=== PATIENT | male | born 1965 | race Caucasian/White ===

== ENCOUNTER 2016-08-03 22:57 | Inpatient (IN) | payer OTHER ==
[2016-08-03 23:00] VITALS: O2SAT 97
[2016-08-03] MEDS ORDERED: ONDANSETRON HCL 4 MG/2 ML VIAL ONE (23:03)
[2016-08-03] MEDS ORDERED: MORPHINE SULFATE 8 MG/ML INJ ONE (23:03)
[2016-08-03 23:17] LABS: I-STAT POTASSIUM 3.5 MMOL/L (3.5-4.9)
[2016-08-03 23:18] LABS: AUTOMATED NEUTROPHIL # 9.7 TH/MM3 (1.8-7.7); BASOPHIL % 0.2 % (0.0-2.0); EOSINOPHIL % 0.2 % (0.0-4.0); HEMATOCRIT 38.2 % (39.0-51.0); HEMO FLAGS DIFF FINAL; LYMPH % 25.6 % (9.0-44.0); LYMPHOCYTE # 3.6 TH/MM3 (1.0-4.8); MEAN CELL VOLUME 86.5 FL (80.0-100.0); MEAN CORPUSCULAR HEMOGLOBIN 29.2 PG (27.0-34.0); MEAN CORPUSCULAR HGB CONC 33.8 % (32.0-36.0); MONO % 5.3 % (0.0-8.0); NEUT % 68.7 % (16.0-70.0); PLATELET COUNT 276 TH/MM3 (150-450); RED BLOOD COUNT 4.42 MIL/MM3 (4.50-5.90); RED CELL DISTRIBUTION WIDTH 13.3 % (11.6-17.2); WHITE BLOOD COUNT 14.1 TH/MM3 (4.0-11.0)
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
[2016-08-03] MEDS ORDERED: DIPHTH/TETANUS/ACEL PERTUSSIS (BOOSTER) 0.5 ML VIAL/PFS IM ONE (23:24)
[2016-08-03] MEDS ORDERED: ceFAZolin 2 GM PREMIX 50 ML IV STA (23:24)
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
[2016-08-03] MEDS ORDERED: IOHEXOL 350 MG/ML 10 ML VIAL (for RAD DIAG) IV ONE (23:28)
[2016-08-03] MEDS ORDERED: ceFAZolin 2 GM PREMIX 50 ML ONE (23:29)
[2016-08-03] MEDS ORDERED: LIDOCAINE 1%/EPINEPHrine 1:100,000 SOLN 30 ML VIAL ONE (23:29)
[2016-08-03] MEDS ORDERED: SODIUM CHLOR 0.9% 1000 ML INJ 1,000 ML IV SCH (23:30)
[2016-08-03 23:31] LABS: APTT (PATIENT) 23.3 SEC (24.3-30.1); PROTHROMBIN TIME - PATIENT 11.6 SEC (9.8-11.6)
[2016-08-03] MEDS ORDERED: MIDAZOLAM HCL 5 MG/ML VIAL (1 ML) ONE (23:31)
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
[2016-08-03 23:58] VITALS: O2SAT 96
[2016-08-04] VITALS (17 sets, daily range): BP systolic 84–141; BP diastolic 52–77; PULSE 80–121; RESP 6–45; TEMP 98.4–100.4; O2SAT 88–100
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
--- NOTE | 2016-08-04 00:14 | RADRPT ---
EXAM DATE/TIME: 08/04/2016 00:07 [facility] COMPARISON: CHEST SINGLE AP, August 03, 2016, 22:51. INDICATIONS : Post right chest tube placement. MEDICAL HISTORY : None. SURGICAL HISTORY : None. ENCOUNTER: Initial ACUITY: 1 day PAIN SCORE: Non-responsive. LOCATION: Right chest FINDINGS: There is a right-sided chest tube in place. The previous seen right pneumothorax is no longer seen. T here is increased density in the right lung likely related to contusion. Multiple or fractures are se en bilaterally. CONCLUSION: Right chest tube in good position with resolution of the pneumothorax. Ruslan Mckeon MD on August 04, 2016 at 0:12 Board Certified Radiologist. This report was verified electronically.
[2016-08-04] MEDS ORDERED: HYDROmorphone HCL PF 1 MG/ML VIAL IV SCH (00:25)
[2016-08-04] MEDS ORDERED: ACETAMINOPHEN/HYDROcodone 325 MG/5 MG TAB PO PRN ×2 (00:30)
[2016-08-04] MEDS ORDERED: MISCELLANEOUS NURSING INFORMATION XX SCH (00:30)
[2016-08-04] MEDS ORDERED: HYDROmorphone HCL PF 1 MG/ML VIAL IVP PRN (00:30)
[2016-08-04] MEDS ORDERED: ENALAPRILAT 1.25 MG/ML VIAL IV PRN (00:30)
[2016-08-04] MEDS ORDERED: CHLORHEXIDINE GLUCONATE 2 % 1 PACK (2 CLOTHS) TOP PRN (00:30)
[2016-08-04] MEDS ORDERED: MAGNESIUM HYDROXIDE SUSP 30 ML CUP PO PRN ×2 (00:30→07:00)
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
[2016-08-04] MEDS ORDERED: SODIUM CHLOR 0.9% 1000 ML INJ 2,000 ML IV SCH (00:45)
[2016-08-04] MEDS ORDERED: PANTOPRAZOLE SODIUM 40 MG VIAL IVP SCH (01:00)
[2016-08-04] MEDS ORDERED: SODIUM CHLOR 0.9% 1000 ML INJ 1,000 ML IV SCH (01:30)
[2016-08-04] MEDS ORDERED: SODIUM CHLOR 0.9% 1000 ML INJ 1,000 ML IV ONE (02:00)
[2016-08-04] MEDS ORDERED: ACETAMINOPHEN 1000 MG/100 ML VIAL IV ONE (02:00)
[2016-08-04] MEDS: SODIUM CHLOR 0.9% 1000 ML INJ 1,000 ML IV SCH ×3 (02:04→22:09)
[2016-08-04] MEDS ORDERED: HYDROCORTISONE SOD SUCCINATE 100 MG VIAL IV PUSH ONE (02:15)
[2016-08-04] MEDS ORDERED: ALBUMIN HUMAN 5% 25 GM/500 ML BOTTLE IV ONE (02:15)
[2016-08-04 02:46] LABS: HEMATOCRIT 23.8 % (39.0-51.0); REVIEW FLAG FINAL
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
[2016-08-04] MEDS ORDERED: NOREPINEPHRINE-DEXTROSE DRIP 250 ML IV ONE (03:16)
[2016-08-04] MEDS: CHLORHEXIDINE GLUCONATE 2 % 1 PACK (2 CLOTHS) TOP SCH (04:00)
[2016-08-04 04:29] LABS: BLOOD GAS BASE EXCESS -5.7 mmol/L (-2-2); BLOOD GAS CARBOXYHEMOGLOBIN 1.1 % (0-4); BLOOD GAS HCO3 21 mmol/L (22-26); BLOOD GAS O2 HGB SATURATION 91 % (90-100); BLOOD GAS OXYGEN CONTENT 11.3 Vol % (12.0-20.0); BLOOD GAS PCO2 51 mmHg (38-42); BLOOD GAS PO2 72 mmHg (61-120); BLOOD GAS TOTAL HGB 8.8 G/DL (12.0-16.0); TEMP CORR TO 98.6
[2016-08-04 04:30] LABS: CRITICAL VALUE YES; DRAW SITE ALINE; FIO2 100 %; LITER FLOW 15 L/M; OXYGEN DEVICE NRB; STAT YES
[2016-08-04 04:34] LABS: P2Y12 REACTION UNITS (PRU) 330 PRU (194-418)
[2016-08-04] MEDS ORDERED: LIDOCAINE HCL 2% 100 MG/5 ML SYRINGE ONE (04:35)
[2016-08-04] MEDS ORDERED: EPINEPHrine HCL (1:10,000) 1 MG/10 ML SYRINGE ONE (04:35)
[2016-08-04] MEDS ORDERED: ATROPINE SULFATE 1 MG/10 ML SYRINGE ONE (04:35)
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
[2016-08-04] MEDS ORDERED: HEPARIN SODIUM - SQ 10,000 UNITS/ML VIAL ONE (04:45)
[2016-08-04] MEDS ORDERED: AMINOCAPROIC ACID INJ 250 MG/ML 20 ML VIAL IV ONE (05:00)
[2016-08-04] MEDS ORDERED: DEXMEDETOMIDINE INJ 50 ML IV ONE (05:00)
[2016-08-04] MEDS ORDERED: NITROGLYCERIN-DEXTROSE INJ 250 ML IV ONE (05:00)
[2016-08-04] MEDS ORDERED: NOREPINEPHRINE 4 MG/4 ML AMP IV ONE (05:00)
[2016-08-04] MEDS ORDERED: EPINEPHrine HCL (1:1000) 30 MG/30 ML VIAL IV ONE (05:00)
[2016-08-04] MEDS ORDERED: VECURONIUM BROMIDE 10 MG VIAL IV ONE (05:00)
[2016-08-04] MEDS ORDERED: ceFAZolin INJ 1,000 MG VIAL IV ONE ×3 (05:00→06:00)
[2016-08-04] MEDS ORDERED: CALCIUM CHLORIDE 10% SOLN 1 GRAM/10 ML SYR IV ONE (05:00)
--- NOTE | 2016-08-04 05:03 | PD.PROCEDR ---
Procedure Note Procedure A time-out was completed verifying correct patient, procedure, site, positioning , and special equipment if applicable. The patient was placed in a dependent position appropriate for central line placement based on the vein to be cannulated. The patients right neck was prepped and draped in sterile fashion. 1% Lidocaine was used to anesthetize the surrounding skin area. A triple lumen 9 -Kosovan Cordis catheter was introduced into the the internal jugular vein using the Seldinger technique and under ultrasound guidance. The catheter was threaded smoothly over the guide wire and appropriate blood return was obtained. Each lumen of the catheter was evacuated of air and flushed with sterile saline. The catheter was then sutured in place to the skin and a sterile dressing applied. Perfusion to the extremity distal to the point of catheter insertion was checked and found to be adequate. Estimated Blood Loss: 1ml The patient tolerated the procedure well and there were no complications. Lauri Johnson MD Aug 04, 2016 05:03
--- NOTE | 2016-08-04 05:03 | PD.PROCEDR ---
Procedure Note Procedure Arterial line A time-out was completed verifying correct patient, procedure, site, positioning , and special equipment if applicable. Allens test was performed to ensure adequate perfusion. The patients right wrist was prepped and draped in sterile fashion. 1% Lidocaine was used to anesthetize the area. A 18G Arrow arterial line was introduced into the radial artery. The catheter was threaded over the guide wire and the needle was removed with appropriate pulsatile blood return. The catheter was then sutured in place to the skin and a sterile dressing applied. Perfusion to the extremity distal to the point of catheter insertion was checked and found to be adequate. Estimated Blood Loss: 1ml The patient tolerated the procedure well and there were no complications. Lauri Johnson MD Aug 04, 2016 05:03
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
[2016-08-04] MEDS ORDERED: BUPIVACAINE LIPOSOME PF 1.3% 20 ML VIAL INFIL ONE (05:30)
[2016-08-04] MEDS ORDERED: BUPIVACAINE LIPOSO PF 1.3% INJ 20 ML, DEXAMETHASONE INJ 4 MG in SODIUM CHLORIDE 0.9% IN... SCH (05:45)
[2016-08-04] MEDS ORDERED: ONDANSETRON HCL 4 MG/2 ML VIAL IV PUSH PRN (07:00)
[2016-08-04] MEDS ORDERED: NALOXONE HCL 0.4 MG/ML AMP IV PRN (07:00)
[2016-08-04] MEDS ORDERED: ACETAMINOPHEN 325 MG TAB PO PRN (07:00)
[2016-08-04] MEDS ORDERED: Post-op Orders (for Pharmacy) MISC OTHER ONE (07:00)
[2016-08-04] MEDS ORDERED: RESP: ALBUTEROL 2.5 MG/3 ML NEB (PRN) NEB (07:00)
[2016-08-04 07:13] LABS: AUTOMATED NEUTROPHIL # 7.4 TH/MM3 (1.8-7.7); BASOPHIL % 0.1 % (0.0-2.0); EOSINOPHIL % 0.1 % (0.0-4.0); HEMATOCRIT 22.4 % (39.0-51.0); HEMO FLAGS DIFF FINAL; LYMPH % 3.2 % (9.0-44.0); LYMPHOCYTE # 0.3 TH/MM3 (1.0-4.8); MEAN CELL VOLUME 85.1 FL (80.0-100.0); MEAN CORPUSCULAR HEMOGLOBIN 29.3 PG (27.0-34.0); MEAN CORPUSCULAR HGB CONC 34.5 % (32.0-36.0); NEUT % 89.6 % (16.0-70.0); PLATELET COUNT 122 TH/MM3 (150-450); RED BLOOD COUNT 2.63 MIL/MM3 (4.50-5.90); RED CELL DISTRIBUTION WIDTH 13.9 % (11.6-17.2); REVIEW FLAG FINAL; WHITE BLOOD COUNT 8.2 TH/MM3 (4.0-11.0)
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
[2016-08-04 07:38] LABS: BICARBONATE 23.3 MEQ/L (21.0-32.0); INTERNATIONAL NORMALIZED RATIO 1.1 RATIO; POTASSIUM 4.1 MEQ/L (3.5-5.1); PROTHROMBIN TIME - PATIENT 12.2 SEC (9.8-11.6)
[2016-08-04] MEDS ORDERED: MIDAZOLAM HCL 2 MG/2 ML VIAL ONE (07:49)
[2016-08-04] MEDS ORDERED: fentaNYL CITRATE 250 MCG/5 ML AMP ONE (07:49)
[2016-08-04 07:52] LABS: CALCIUM-PROTEIN CORRECTED 8.9 MG/DL (8.5-10.1)
[2016-08-04] MEDS ORDERED: PROPOFOL 1000 MG/100 ML INJ 100 ML ONE (07:59)
[2016-08-04] MEDS ORDERED: MORPHINE SULFATE 30 MG/30 ML PCA IV SCH (08:30)
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
[2016-08-04] MEDS: BACITRACIN TOP OINT 15 GM TUBE TOP SCH ×2 (09:00→22:09)
[2016-08-04] MEDS ORDERED: DOCUSATE SODIUM 100 MG CAP PO SCH (09:00)
--- NOTE | 2016-08-04 09:05 | RADRPT ---
EXAM DATE/TIME: 08/04/2016 07:55 [facility] COMPARISON: CHEST SINGLE AP, August 04, 2016, 2:34. INDICATIONS : Status post Thoracotomy. MEDICAL HISTORY : None. SURGICAL HISTORY : None. ENCOUNTER: Subsequent ACUITY: 2 days PAIN SCORE: Non-responsive. LOCATION: Bilateral chest FINDINGS: There are into right chest tubes in place with clearing of the majority of opacity in the right lung is consistent with evacuation of effusion. Right hemidiaphragm is well defined. Consolidation is note d in the retrocardiac region on the left and multiple rib fractures are noted with no pneumothorax. CONCLUSION: 2 right chest tubes in place clearing of right hemothorax pleural effusion. No pneumothorax. Consolid ation retrocardiac region left lower lobe. ET tube is well above the daniel nasogastric tube in the s tomach. Amrit Castro MD on August 04, 2016 at 9:02 Board Certified Radiologist. This report was verified electronically.
[2016-08-04] MEDS ORDERED: MAGNESIUM OXIDE 400 MG TAB PO PRN (09:15)
[2016-08-04] MEDS ORDERED: POTASSIUM CL 40 MEQ/30 ML LIQ UDC PO/TUBE PRN ×2 (09:15)
[2016-08-04] MEDS ORDERED: MAGNESIUM SULFATE INJ 2 GM in SODIUM CHLORIDE 0.9% INJ 96 ML IV PRN (09:15)
[2016-08-04] MEDS ORDERED: POTASSIUM PHOSPHATE MONOBASIC 500 MG TAB PO PRN (09:15)
[2016-08-04] MEDS ORDERED: POTASSIUM PHOSPHATE INJ 30 MMOL in SODIUM CHLOR 0.9% 250 ML INJ 250 ML IV PRN (09:15)
[2016-08-04] MEDS ORDERED: POTASSIUM CHLOR 20 MEQ PREMIX 100 ML IV PRN ×2 (09:15)
[2016-08-04] MEDS ORDERED: POTASSIUM CHLOR 40 MEQ PREMIX 100 ML IV PRN ×2 (09:15)
[2016-08-04] MEDS ORDERED: POTASSIUM PHOSPHATE MONOBASIC 500 MG TAB PO/TUBE PRN (09:15)
[2016-08-04] MEDS ORDERED: MAGNESIUM SULFATE INJ 4 GM in SODIUM CHLORIDE 0.9% INJ 92 ML IV PRN (09:15)
[2016-08-04] MEDS ORDERED: SODIUM PHOSPHATE INJ 30 MMOL in SODIUM CHLOR 0.9% 250 ML INJ 240 ML IV PRN (09:15)
[2016-08-04] MEDS: RESP: ALBUTEROL 2.5 MG/3 ML NEB (SCH) NEB ×3 (09:59→20:55)
[2016-08-04] MEDS: PROPOFOL 1000 MG/100 ML INJ 100 ML IV SCH ×2 (11:01→11:02)
[2016-08-04] MEDS: fentaNYL DRIP 250 ML IV SCH ×2 (11:01→22:10)
[2016-08-04 11:17] LABS: REVIEW FLAG FINAL
[2016-08-04] MEDS: KETOROLAC TROMETHAMINE 30 MG/ML (IVP) VIAL IV PUSH SCH ×2 (11:34→18:00)
[2016-08-04] MEDS: ACETAMINOPHEN 1000 MG/100 ML VIAL IV SCH ×2 (11:34→18:00)
[2016-08-04 11:42] LABS: BLOOD GAS BASE EXCESS -1.6 mmol/L (-2-2); BLOOD GAS CARBOXYHEMOGLOBIN 2.2 % (0-4); BLOOD GAS HCO3 23 mmol/L (22-26); BLOOD GAS METHEMOGLOBIN 0.9 % (0-2); BLOOD GAS O2 HGB SATURATION 97 % (90-100); BLOOD GAS PCO2 44 mmHg (38-42); BLOOD GAS PO2 200 mmHg (61-120); BLOOD GAS TOTAL HGB 8.5 G/DL (12.0-16.0); CRITICAL VALUE NO; OXYGEN DEVICE VENTILATOR; TEMP CORR TO 98.6; VENT SETTINGS SEE COMMENTS
[2016-08-04 11:43] LABS: DRAW SITE ALINE; FIO2 50 %; STAT NO
[2016-08-04] MEDS ORDERED: LACTATED RINGER'S 1000 ML INJ 1,000 ML IV ONE (12:07)
[2016-08-04] MEDS ORDERED: PHENYLEPH/NS 1000 MCG/10 ML SYR IV ONE (12:07)
[2016-08-04] MEDS ORDERED: ETOMIDATE 20 MG/10 ML VIAL IV PUSH ONE (12:08)
[2016-08-04] MEDS ORDERED: PCA - TOTAL MG MORPHINE DELIVERED PER SHIFT SCH (14:00)
[2016-08-04] MEDS ORDERED: PROPOFOL 200 MG/20 ML AMP IV ONE (15:25)
[2016-08-04] MEDS ORDERED: DEXMEDETOMIDINE HCL 200 MCG/2 ML VIAL IV ONE (15:25)
[2016-08-04] MEDS ORDERED: NORMOSOL R INJ 4,000 ML IV ONE (15:25)
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
[2016-08-04] MEDS: CHLORHEXIDINE 0.12% (ORAL KIT) 15 ML CUP MT SCH (20:00)
--- NOTE | 2016-08-04 22:01 | EKG ---
Date Performed: 08/04/2016 Time Performed: 04:05:48 PTAGE: 89 years EKG: Sinus tachycardia. Low QRS voltages in limb leads Borderline ECG NO PREVIOUS TRACING DOCTOR: Helio Ventura Interpretating Date/Time 08/04/2016 21:59:06
[2016-08-04] MEDS: DOCUSATE CALCIUM 240 MG CAP PO SCH (22:09)
[2016-08-04] MEDS: PANTOPRAZOLE SOD 40 MG DELAYED RELEASE TAB PO SCH (22:09)
[2016-08-04] MEDS: oxyCODONE/ACETAMINOPHEN 5 MG/325 MG TAB PO PRN (22:19)
[2016-08-05] VITALS (16 sets, daily range): BP systolic 96–136; BP diastolic 52–80; PULSE 92–118; RESP 12–24; TEMP 97–100.8; O2SAT 92–98
[2016-08-05] MEDS: CHLORHEXIDINE GLUCONATE 2 % 1 PACK (2 CLOTHS) TOP SCH (04:00)
[2016-08-05 04:42] LABS: AUTOMATED NEUTROPHIL # 5.7 TH/MM3 (1.8-7.7); BASOPHIL % 0.2 % (0.0-2.0); EOSINOPHIL % 0.2 % (0.0-4.0); HEMATOCRIT 21.9 % (39.0-51.0); HEMO FLAGS DIFF FINAL; LYMPH % 18.5 % (9.0-44.0); LYMPHOCYTE # 1.5 TH/MM3 (1.0-4.8); MEAN CELL VOLUME 84.8 FL (80.0-100.0); MEAN CORPUSCULAR HEMOGLOBIN 29.3 PG (27.0-34.0); MEAN CORPUSCULAR HGB CONC 34.6 % (32.0-36.0); MONO % 9.3 % (0.0-8.0); NEUT % 71.8 % (16.0-70.0); PLATELET COUNT 117 TH/MM3 (150-450); RED BLOOD COUNT 2.59 MIL/MM3 (4.50-5.90); RED CELL DISTRIBUTION WIDTH 14.2 % (11.6-17.2); WHITE BLOOD COUNT 7.9 TH/MM3 (4.0-11.0)
[2016-08-05 05:19] LABS: BICARBONATE 27.3 MEQ/L (21.0-32.0); CALCIUM-PROTEIN CORRECTED 8.4 MG/DL (8.5-10.1); POTASSIUM 3.7 MEQ/L (3.5-5.1); TOTAL BILIRUBIN ADULT 0.8 MG/DL (0.2-1.0)
[2016-08-05] MEDS: ACETAMINOPHEN 1000 MG/100 ML VIAL IV SCH ×2 (06:00)
[2016-08-05] MEDS: KETOROLAC TROMETHAMINE 30 MG/ML (IVP) VIAL IV PUSH SCH ×2 (06:00)
[2016-08-05] MEDS: SODIUM CHLOR 0.9% 1000 ML INJ 1,000 ML IV SCH (06:20)
--- NOTE | 2016-08-05 06:36 | RADRPT ---
EXAM DATE/TIME: 08/05/2016 05:29 [place] COMPARISON: CHEST SINGLE AP, August 04, 2016, 7:55. INDICATIONS : Shortness of breath MEDICAL HISTORY : None. SURGICAL HISTORY : None. ENCOUNTER: Subsequent ACUITY: 3 days PAIN SCORE: Non-responsive. LOCATION: Bilateral chest FINDINGS: 2 right-sided chest tubes are in place. A significant pneumothorax is not seen. There is patchy densi ty in the right midlung. There some minimal increased density at the medial left upper lung and at th e lateral left base. The heart size is normal. Bilateral rib fractures are present. CONCLUSION: 1. Right chest tubes without a pneumothorax seen. 2. Patchy areas of suspected consolidation/contusion bilaterally. Ruslan Mckeon MD on August 05, 2016 at 6:33 Board Certified Radiologist. This report was verified electronically.
[2016-08-05] MEDS: CHLORHEXIDINE 0.12% (ORAL KIT) 15 ML CUP MT SCH (07:55)
[2016-08-05] MEDS: BACITRACIN TOP OINT 15 GM TUBE TOP SCH ×2 (08:36→21:00)
[2016-08-05] MEDS: fentaNYL DRIP 250 ML IV SCH (08:37)
[2016-08-05] MEDS: RESP: ALBUTEROL 2.5 MG/3 ML NEB (SCH) NEB ×2 (09:53→20:53)
[2016-08-05] MEDS ORDERED: ARTIFICIAL TEARS OPTH SOLN 15 ML BTL EACH EYE PRN (10:00)
[2016-08-05] MEDS: oxyCODONE/ACETAMINOPHEN 5 MG/325 MG TAB PO PRN ×3 (10:39→20:38)
[2016-08-05] MEDS ORDERED: BUMETANIDE INJ 1 MG/4 ML VIAL IV PUSH ONE (10:45)
[2016-08-05] MEDS ORDERED: NALOXONE HCL 0.4 MG/ML AMP IV PRN (11:00)
[2016-08-05] MEDS ORDERED: MORPHINE SULFATE 30 MG/30 ML PCA IV SCH (11:00)
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
[2016-08-05] MEDS: DOCUSATE CALCIUM 240 MG CAP PO SCH (20:39)
[2016-08-05] MEDS: PANTOPRAZOLE SOD 40 MG DELAYED RELEASE TAB PO SCH (20:39)
[2016-08-05] MEDS: PCA - TOTAL MG MORPHINE DELIVERED PER SHIFT SCH (20:43)
[2016-08-06] VITALS (12 sets, daily range): BP systolic 107–145; BP diastolic 68–91; PULSE 94–114; RESP 14–20; TEMP 97.6–99.2; O2SAT 93–100
[2016-08-06] MEDS: oxyCODONE/ACETAMINOPHEN 5 MG/325 MG TAB PO PRN ×6 (00:18→22:04)
[2016-08-06] MEDS: RESP: ALBUTEROL 2.5 MG/3 ML NEB (SCH) NEB ×4 (03:16→21:02)
[2016-08-06 05:41] LABS: AUTOMATED NEUTROPHIL # 6.3 TH/MM3 (1.8-7.7); BASOPHIL % 0.3 % (0.0-2.0); EOSINOPHIL % 0.5 % (0.0-4.0); HEMATOCRIT 23.2 % (39.0-51.0); HEMO FLAGS DIFF FINAL; LYMPH % 16.1 % (9.0-44.0); LYMPHOCYTE # 1.4 TH/MM3 (1.0-4.8); MEAN CELL VOLUME 85.2 FL (80.0-100.0); MEAN CORPUSCULAR HEMOGLOBIN 30.4 PG (27.0-34.0); MEAN CORPUSCULAR HGB CONC 35.7 % (32.0-36.0); MONO % 8.9 % (0.0-8.0); NEUT % 74.2 % (16.0-70.0); PLATELET COUNT 127 TH/MM3 (150-450); RED BLOOD COUNT 2.72 MIL/MM3 (4.50-5.90); RED CELL DISTRIBUTION WIDTH 13.9 % (11.6-17.2); WHITE BLOOD COUNT 8.5 TH/MM3 (4.0-11.0)
[2016-08-06 06:00] LABS: ALT (GPT) 36 U/L (12-78); ANION GAP 6 MEQ/L (5-15); AST (GOT) 44 U/L (15-37); BICARBONATE 29.8 MEQ/L (21.0-32.0); BLOOD UREA NITROGEN 11 MG/DL (7-18); CHLORIDE 107 MEQ/L (98-107); GLOMERULAR FILTRATION RATE 132 ML/MIN (>89); MAGNESIUM 1.9 MG/DL (1.5-2.5); POTASSIUM 3.5 MEQ/L (3.5-5.1); SODIUM (NA) 143 MEQ/L (136-145)
[2016-08-06] MEDS: PCA - TOTAL MG MORPHINE DELIVERED PER SHIFT SCH (06:00)
[2016-08-06 06:02] LABS: ALKALINE PHOSPHATASE 45 U/L (45-117); TOTAL BILIRUBIN ADULT 0.7 MG/DL (0.2-1.0)
--- NOTE | 2016-08-06 07:07 | RADRPT ---
EXAM DATE/TIME: 08/06/2016 06:24 [facility] COMPARISON: CHEST SINGLE AP, August 05, 2016, 5:29. INDICATIONS : Short of breath, evaluate chest tube MEDICAL HISTORY : pneumothorax SURGICAL HISTORY : thorocotomy, chest tube on right ENCOUNTER: Subsequent ACUITY: 4 - 6 days PAIN SCORE: 8/10 LOCATION: Right chest FINDINGS: There is diffuse haziness to the left lung not present previously may represent pulmonary edema and/o r underlying pleural effusion or possibly pulmonary contusion. There is haziness in the right prevasc ular structures most likely pulmonary edema and/or contusion as well. Chest tubes are present on the right side. No definite pneumothorax is seen for technique. The rest of the examination has not signi ficantly changed. CONCLUSION: Worsening left lung base opacity and no change in right perivascular haziness. Lucita Butts MD on August 06, 2016 at 7:01 Board Certified Radiologist. This report was verified electronically.
[2016-08-06] MEDS ORDERED: KETOROLAC TROMETHAMINE 30 MG/ML (IVP) VIAL IV PUSH ONE (07:15)
[2016-08-06] MEDS: LACTULOSE SYRUP 20 GM/30 ML CUP PO SCH (08:29)
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
[2016-08-06] MEDS: fentaNYL 25 MCG/HR PATCH TD SCH (18:34)
[2016-08-06] MEDS: BACITRACIN TOP OINT 15 GM TUBE TOP SCH (21:00)
[2016-08-06] MEDS: DOCUSATE CALCIUM 240 MG CAP PO SCH (22:04)
[2016-08-06] MEDS: PANTOPRAZOLE SOD 40 MG DELAYED RELEASE TAB PO SCH (22:04)
[2016-08-07] VITALS (9 sets, daily range): BP systolic 128–136; BP diastolic 80–84; PULSE 94–123; RESP 18–20; TEMP 97.1–99.4; O2SAT 92–100
[2016-08-07] MEDS: KETOROLAC TROMETHAMINE 30 MG/ML (IVP) VIAL IV PUSH PRN ×3 (00:40→21:49)
[2016-08-07] MEDS: RESP: ALBUTEROL 2.5 MG/3 ML NEB (SCH) NEB ×4 (03:32→22:00)
[2016-08-07] MEDS: oxyCODONE/ACETAMINOPHEN 5 MG/325 MG TAB PO PRN ×4 (06:01→19:02)
--- NOTE | 2016-08-07 06:42 | RADRPT ---
EXAM DATE/TIME: 08/07/2016 06:00 [facility] COMPARISON: CHEST SINGLE AP, August 06, 2016, 6:24. INDICATIONS : S/P Thoractomy MEDICAL HISTORY : pneumothorax SURGICAL HISTORY : thorocotomy, chest tube on right ENCOUNTER: Subsequent ACUITY: 1 week PAIN SCORE: Non-responsive. LOCATION: Bilateral chest FINDINGS: Multiple rib fractures are present as before. There is consolidation bilaterally slightly improved in the left midlung and right mid lung. Linear atelectasis right mid lung present. There are 2 right-si ded chest tubes. I do not see a pneumothorax. CONCLUSION: Improved aeration. Pepe Morgan MD on August 07, 2016 at 6:39 Board Certified Radiologist. This report was verified electronically.
[2016-08-07] MEDS: BACITRACIN TOP OINT 15 GM TUBE TOP SCH ×2 (09:00→21:02)
[2016-08-07] MEDS: LACTULOSE SYRUP 20 GM/30 ML CUP PO SCH (09:28)
[2016-08-07] MEDS: SUMAtriptan SUCCINATE 25 MG TAB PO PRN ×2 (11:50→19:20)
[2016-08-07] MEDS ORDERED: BACITRACIN TOP OINT 15 GM TUBE TOP SCH (12:15)
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
[2016-08-07] MEDS: ONDANSETRON HCL 4 MG/2 ML VIAL IV PRN (16:13)
[2016-08-07] MEDS: DOCUSATE CALCIUM 240 MG CAP PO SCH (21:01)
[2016-08-07] MEDS: PANTOPRAZOLE SOD 40 MG DELAYED RELEASE TAB PO SCH (21:01)
[2016-08-08] VITALS: BP 128/85; PULSE 94; RESP 18; TEMP 97.4; O2SAT 96
[2016-08-08] MEDS: SUMAtriptan SUCCINATE 25 MG TAB PO PRN ×2 (00:27→11:55)
[2016-08-08] MEDS: oxyCODONE/ACETAMINOPHEN 5 MG/325 MG TAB PO PRN ×4 (00:27→20:21)
[2016-08-08] MEDS: RESP: ALBUTEROL 2.5 MG/3 ML NEB (SCH) NEB ×2 (03:34→09:44)
[2016-08-08] MEDS: KETOROLAC TROMETHAMINE 30 MG/ML (IVP) VIAL IV PUSH PRN ×3 (06:43→22:37)
[2016-08-08] MEDS: LACTULOSE SYRUP 20 GM/30 ML CUP PO SCH (07:52)
[2016-08-08] MEDS: SODIUM CHLORIDE 0.9% FLUSH 5 ML FLUSH IVF PRN (07:55)
[2016-08-08 08:00] VITALS: BP 128/79; PULSE 99; RESP 17; TEMP 98.6; O2SAT 98
[2016-08-08] MEDS: BACITRACIN TOP OINT 15 GM TUBE TOP SCH ×2 (08:09→20:15)
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
[2016-08-08 09:44] VITALS: O2SAT 97
[2016-08-08 12:00] VITALS: BP 126/76; PULSE 98; RESP 17; TEMP 98.4; O2SAT 98
[2016-08-08] MEDS: ONDANSETRON HCL 4 MG/2 ML VIAL IV PRN (12:52)
[2016-08-08] MEDS ORDERED: MAGNESIUM CITRATE SOLN 300 ML BTL PO ONE (13:15)
[2016-08-08] MEDS: ENOXAPARIN SODIUM 40 MG/0.4 ML SYRINGE SQ SCH (13:54)
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
[2016-08-08 16:00] VITALS: BP 120/70; PULSE 98; RESP 17; TEMP 98.7; O2SAT 98
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
[2016-08-08 20:00] VITALS: BP 148/88; PULSE 86; RESP 20; TEMP 98.6; O2SAT 100
[2016-08-08] MEDS: PANTOPRAZOLE SOD 40 MG DELAYED RELEASE TAB PO SCH (20:15)
[2016-08-08] MEDS: DOCUSATE CALCIUM 240 MG CAP PO SCH (20:15)
[2016-08-09] VITALS: BP 132/60; PULSE 88; RESP 20; TEMP 97.1; O2SAT 100
[2016-08-09] MEDS: oxyCODONE/ACETAMINOPHEN 5 MG/325 MG TAB PO PRN ×3 (05:47→22:16)
[2016-08-09 07:53] VITALS: O2SAT 98
[2016-08-09 08:00] VITALS: BP 133/80; PULSE 88; RESP 18; TEMP 98.5; O2SAT 97
[2016-08-09] MEDS: KETOROLAC TROMETHAMINE 30 MG/ML (IVP) VIAL IV PUSH PRN ×2 (08:50→15:05)
[2016-08-09] MEDS: LACTULOSE SYRUP 20 GM/30 ML CUP PO SCH (08:53)
[2016-08-09] MEDS: BACITRACIN TOP OINT 15 GM TUBE TOP SCH ×2 (08:54→21:00)
[2016-08-09] MEDS: ONDANSETRON HCL 4 MG/2 ML VIAL IV PRN (11:25)
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
[2016-08-09] MEDS ORDERED: WALKER WHEELS/F1 MIS (13:35)
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
[2016-08-09] MEDS: REMOVE OLD DURAGESIC (FENTANYL) PATCH TD SCH (15:00)
[2016-08-09] MEDS: METHOCARBAMOL 500 MG TAB PO SCH ×2 (15:05→22:15)
[2016-08-09] MEDS: ENOXAPARIN SODIUM 40 MG/0.4 ML SYRINGE SQ SCH (15:06)
[2016-08-09] MEDS: fentaNYL 25 MCG/HR PATCH TD SCH (15:10)
[2016-08-09 15:59] LABS: HEMATOCRIT 22.9 % (39.0-51.0); MEAN CELL VOLUME 87.2 FL (80.0-100.0); MEAN CORPUSCULAR HEMOGLOBIN 30.3 PG (27.0-34.0); MEAN CORPUSCULAR HGB CONC 34.7 % (32.0-36.0); PLATELET COUNT 199 TH/MM3 (150-450); RED BLOOD COUNT 2.63 MIL/MM3 (4.50-5.90); RED CELL DISTRIBUTION WIDTH 13.5 % (11.6-17.2); REVIEW FLAG FINAL; WHITE BLOOD COUNT 7.3 TH/MM3 (4.0-11.0)
[2016-08-09 16:00] VITALS: BP 139/86; PULSE 104; RESP 18; TEMP 98.1; O2SAT 95
[2016-08-09 16:25] LABS: BICARBONATE 30.2 MEQ/L (21.0-32.0); POTASSIUM 3.8 MEQ/L (3.5-5.1)
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
[2016-08-09] MEDS: SUMAtriptan SUCCINATE 25 MG TAB PO PRN (18:01)
--- NOTE | 2016-08-09 18:48 | RADRPT ---
EXAM DATE/TIME: 08/09/2016 17:53 [facility] COMPARISON: CHEST SINGLE AP, August 07, 2016, 6:00. INDICATIONS : Right chest tube removel MEDICAL HISTORY : pneumothorax SURGICAL HISTORY : thorocotomy, chest tube on right ENCOUNTER: Subsequent ACUITY: 1 week PAIN SCORE: 10/10 LOCATION: Bilateral chest FINDINGS: One of 2 right-sided chest tubes have been removed. Right lung remains well-expanded without pneumoth orax. Multiple left-sided rib fractures are again noted. There is no evidence of left-sided pneumothorax. Left lower lobe consolidation and effusion remain evident. CONCLUSION: Stable right lung following removal of thoracostomy tube. No evidence of pneumothorax. Persistent left basilar consolidation and pleural effusion. Francis Arboleda MD on August 09, 2016 at 18:45 Board Certified Radiologist. This report was verified electronically.
[2016-08-09 20:00] VITALS: BP 144/84; PULSE 92; RESP 20; TEMP 99.8; O2SAT 97
[2016-08-09] MEDS: PANTOPRAZOLE SOD 40 MG DELAYED RELEASE TAB PO SCH (22:15)
[2016-08-09] MEDS: DOCUSATE CALCIUM 240 MG CAP PO SCH (22:15)
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
[2016-08-10] VITALS (8 sets, daily range): BP systolic 132–146; BP diastolic 79–83; PULSE 92–106; RESP 16–20; TEMP 98.4–100.1; O2SAT 94–97
[2016-08-10] MEDS: METHOCARBAMOL 500 MG TAB PO SCH ×3 (05:42→20:57)
[2016-08-10] MEDS: oxyCODONE/ACETAMINOPHEN 5 MG/325 MG TAB PO PRN ×5 (07:57→23:57)
[2016-08-10] MEDS: LACTULOSE SYRUP 20 GM/30 ML CUP PO SCH (07:57)
[2016-08-10] MEDS: BACITRACIN TOP OINT 15 GM TUBE TOP SCH ×2 (07:59→21:00)
[2016-08-10] MEDS: SUMAtriptan SUCCINATE 25 MG TAB PO PRN (08:41)
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
[2016-08-10] MEDS: ENOXAPARIN SODIUM 40 MG/0.4 ML SYRINGE SQ SCH (14:05)
[2016-08-10] MEDS: KETOROLAC TROMETHAMINE 30 MG/ML (IVP) VIAL IV PUSH PRN ×3 (14:07→20:56)
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
[2016-08-10] MEDS: DOCUSATE CALCIUM 240 MG CAP PO SCH (20:57)
[2016-08-10] MEDS: PANTOPRAZOLE SOD 40 MG DELAYED RELEASE TAB PO SCH (20:57)
[2016-08-11] VITALS: BP 147/76; PULSE 103; RESP 17; TEMP 99.4; O2SAT 97
[2016-08-11] MEDS: METHOCARBAMOL 500 MG TAB PO SCH ×3 (05:37→22:10)
[2016-08-11] MEDS: oxyCODONE/ACETAMINOPHEN 5 MG/325 MG TAB PO PRN ×6 (05:38→23:57)
[2016-08-11 08:00] VITALS: BP 137/86; PULSE 101; RESP 18; TEMP 99.4; O2SAT 95
[2016-08-11] MEDS: DOCUSATE SODIUM 50 MG/SENNA 8.6 MG TAB PO SCH ×2 (09:00→22:10)
[2016-08-11] MEDS: LACTULOSE SYRUP 20 GM/30 ML CUP PO SCH (09:00)
[2016-08-11 09:02] VITALS: O2SAT 98
[2016-08-11] MEDS: BACITRACIN TOP OINT 15 GM TUBE TOP SCH ×2 (09:07→21:00)
[2016-08-11] MEDS: KETOROLAC TROMETHAMINE 30 MG/ML (IVP) VIAL IV PUSH PRN ×2 (10:19→22:09)
[2016-08-11] MEDS: SODIUM CHLORIDE 0.9% FLUSH 5 ML FLUSH IVF PRN (10:20)
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
[2016-08-11 12:00] VITALS: BP 125/80; PULSE 88; RESP 19; TEMP 98.5; O2SAT 98
[2016-08-11] MEDS: ENOXAPARIN SODIUM 40 MG/0.4 ML SYRINGE SQ SCH (12:31)
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
[2016-08-11 16:00] VITALS: BP 142/83; PULSE 91; RESP 20; TEMP 96.4; O2SAT 99
[2016-08-11 20:00] VITALS: BP 144/81; PULSE 82; RESP 20; TEMP 98.9; O2SAT 98
[2016-08-11] MEDS: PANTOPRAZOLE SOD 40 MG DELAYED RELEASE TAB PO SCH (22:10)
[2016-08-12] VITALS: BP 138/76; PULSE 80; RESP 20; TEMP 97.6; O2SAT 96
[2016-08-12] MEDS: oxyCODONE/ACETAMINOPHEN 5 MG/325 MG TAB PO PRN ×6 (03:30→20:20)
--- NOTE | 2016-08-12 06:20 | RADRPT ---
EXAM DATE/TIME: 08/12/2016 05:48 [facility] COMPARISON: CHEST SINGLE AP, August 10, 2016, 11:28. INDICATIONS : Follow up trauma. Chest tube. MEDICAL HISTORY : None. SURGICAL HISTORY : None. ENCOUNTER: Subsequent ACUITY: 4 - 6 days PAIN SCORE: 8/10 LOCATION: Bilateral chest FINDINGS: Right chest tube present without significant pneumothorax. Bilateral mostly basilar airspace disease similar to August 10. Multiple left-sided rib fractures present. Heart size enlarged. CONCLUSION: 1. Right chest tube without significant pneumothorax. Basal airspace disease similar to August 10. Multiple left-sided rib fractures. Yifan Goins MD on August 12, 2016 at 6:18 Board Certified Radiologist. This report was verified electronically.
[2016-08-12 06:30] LABS: AUTOMATED NEUTROPHIL # 2.9 TH/MM3 (1.8-7.7); BASOPHIL # 0.1 TH/MM3 (0-0.2); BASOPHIL % 0.9 % (0.0-2.0); EOSINOPHIL # 0.3 TH/MM3 (0-0.4); EOSINOPHIL % 4.9 % (0.0-4.0); HEMATOCRIT 23.3 % (39.0-51.0); HEMO FLAGS DIFF FINAL; LYMPH % 28.2 % (9.0-44.0); LYMPHOCYTE # 1.6 TH/MM3 (1.0-4.8); MEAN CELL VOLUME 87.1 FL (80.0-100.0); MEAN CORPUSCULAR HEMOGLOBIN 30.1 PG (27.0-34.0); MEAN CORPUSCULAR HGB CONC 34.5 % (32.0-36.0); MONO % 14.1 % (0.0-8.0); NEUT % 51.9 % (16.0-70.0); PLATELET COUNT 265 TH/MM3 (150-450); RED BLOOD COUNT 2.67 MIL/MM3 (4.50-5.90); RED CELL DISTRIBUTION WIDTH 14.3 % (11.6-17.2); WHITE BLOOD COUNT 5.6 TH/MM3 (4.0-11.0)
[2016-08-12] MEDS: METHOCARBAMOL 500 MG TAB PO SCH ×3 (06:31→20:20)
[2016-08-12 07:02] LABS: ALKALINE PHOSPHATASE 86 U/L (45-117); ALT (GPT) 98 U/L (12-78); ANION GAP 7 MEQ/L (5-15); AST (GOT) 64 U/L (15-37); BICARBONATE 29.6 MEQ/L (21.0-32.0); BLOOD UREA NITROGEN 14 MG/DL (7-18); CHLORIDE 102 MEQ/L (98-107); GLOMERULAR FILTRATION RATE 107 ML/MIN (>89); MAGNESIUM 2.1 MG/DL (1.5-2.5); POTASSIUM 4.2 MEQ/L (3.5-5.1); SODIUM (NA) 139 MEQ/L (136-145); TOTAL BILIRUBIN ADULT 0.7 MG/DL (0.2-1.0)
[2016-08-12 08:00] VITALS: BP 139/79; PULSE 84; RESP 18; TEMP 97.9; O2SAT 97
[2016-08-12] MEDS: DOCUSATE SODIUM 50 MG/SENNA 8.6 MG TAB PO SCH ×2 (08:46→20:20)
[2016-08-12] MEDS: LACTULOSE SYRUP 20 GM/30 ML CUP PO SCH (08:46)
[2016-08-12] MEDS ORDERED: BISACODYL 10 MG SUPP RECTAL ONE (09:00)
[2016-08-12] MEDS: BACITRACIN TOP OINT 15 GM TUBE TOP SCH ×2 (09:00→20:23)
[2016-08-12] MEDS ORDERED: BISACODYL EC 5 MG TABEC PO ONE (09:00)
[2016-08-12 12:00] VITALS: BP 122/72; PULSE 95; RESP 17; TEMP 98.5; O2SAT 96
[2016-08-12 12:48] VITALS: O2SAT 97
[2016-08-12] MEDS: ENOXAPARIN SODIUM 40 MG/0.4 ML SYRINGE SQ SCH (13:05)
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
[2016-08-12] MEDS: REMOVE OLD DURAGESIC (FENTANYL) PATCH TD SCH (15:00)
[2016-08-12 16:00] VITALS: BP 134/81; PULSE 98; RESP 19; TEMP 98.4; O2SAT 98
[2016-08-12] MEDS: fentaNYL 25 MCG/HR PATCH TD SCH (17:01)
[2016-08-12 20:00] VITALS: BP 133/80; PULSE 95; RESP 20; TEMP 98.6; O2SAT 98
[2016-08-12] MEDS: PANTOPRAZOLE SOD 40 MG DELAYED RELEASE TAB PO SCH (20:20)
[2016-08-12] MEDS: SUMAtriptan SUCCINATE 25 MG TAB PO PRN (22:31)
[2016-08-13] VITALS: BP 126/78; PULSE 90; RESP 20; TEMP 98.4; O2SAT 98
[2016-08-13] MEDS: oxyCODONE/ACETAMINOPHEN 5 MG/325 MG TAB PO PRN ×6 (00:12→23:26)
[2016-08-13] MEDS: METHOCARBAMOL 500 MG TAB PO SCH ×3 (06:07→20:58)
[2016-08-13 08:00] VITALS: BP 121/70; PULSE 87; RESP 17; TEMP 98.5; O2SAT 95
[2016-08-13] MEDS ORDERED: MAGNESIUM CITRATE SOLN 300 ML BTL PO ONE (08:00)
[2016-08-13] MEDS: BACITRACIN TOP OINT 15 GM TUBE TOP SCH ×2 (08:44→20:59)
[2016-08-13] MEDS: DOCUSATE SODIUM 50 MG/SENNA 8.6 MG TAB PO SCH ×2 (08:44→20:58)
[2016-08-13] MEDS: LACTULOSE SYRUP 20 GM/30 ML CUP PO SCH (08:44)
[2016-08-13] MEDS ORDERED: PERC5TAB12 PO (11:07)
[2016-08-13] MEDS ORDERED: ROBA500T PO (11:08)
--- NOTE | 2016-08-13 11:09 | RADRPT ---
EXAM DATE/TIME: 08/13/2016 10:35 [facility] COMPARISON: CHEST SINGLE AP, August 12, 2016, 5:48. INDICATIONS: Evaluate for pneumothorax post chest tube placement. MEDICAL HISTORY: None. SURGICAL HISTORY: None. ENCOUNTER: Initial ACUITY: 2 days PAIN SCORE: 5/10 LOCATION: Right chest FINDINGS: Right chest tube is in good position without pneumothorax. Minimal consolidative changes are seen in the left base. Heart and pulmonary vascularity are normal. Portion of bony skeleton visualized unr emarkable. CONCLUSION: Stable chest. Consolidative changes remain in the left base with associated rib fractures. . Bentley Cotter MD FACR on August 13, 2016 at 11:04 Board Certified Radiologist. This report was verified electronically.
[2016-08-13] MEDS: ENOXAPARIN SODIUM 40 MG/0.4 ML SYRINGE SQ SCH (11:27)
[2016-08-13 12:00] VITALS: BP 129/82; PULSE 85; RESP 18; TEMP 97.9; O2SAT 98
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
--- NOTE | 2016-08-13 15:13 | HHI.FF ---
Face to Face Verification Diagnosis: (1) Pneumothorax on right (2) . Emergent Exploratory Right Posterolateral Muscle Sparing Thoracotomy Home Health Nursing Order: Signs/symptoms of disease process Wound care and dressing changes Instructions: Incentive spirometry Q1 hr x 10, while awake, also use acapella device hourly whole awake Chest Precautions: NO pushing or pulling, ( pt must use chest pillow to support chest with all activities and with coughing Daily incision care: ok to shower daily starting tuesday08/15/16, no tub bath. Wash all incisions with liquid dial soap, clean wash cloth to each site, rinse and pat dry. Observe for any signs of infection, such as drainage which is dark yellow, de leon, green or foul smelling. Immediately report to the surgeon any drainage from the chest incision, or legs, and for any abnormal drainage from the chest tube sites. Notify surgeon if any temp >101.5 degrees F. When specialty dressing removed/ or if you do not have one, continue to shower daily as above, then rinse and pat incision dry and paint with betadine daily x 5 days. Allow steri strips to fall off if you have any. Avoid lotions, creams, salves, oils, etc. for the first month for right upper chest wall wound/ incision / ok to change dressing daily / change packing with iodoform packing -W- / cleanse are with betadine For Dr. Choi patients , please obtain CBC, BMP, PA & Lat CXR in 2 weeks, results to Dr. Choi ( prescription will be given) ( ) (Tele: [phone]) , Valve replacement pts will need 2decho in 2 weeks with results to Dr. Choi . Please obtain 2 d echo at your gre tutor office if possible F/U appointment: as per [facility] instructions: PCP in 2 weeks, For any questions regarding incisions/ dressing / meds / post op care or above Symptoms, Tuesday 8am-5pm Heart & Vascular Surgery Office ( Dr. Huffman & Dr. Choi), After Hours / Nights (5pm -8am) Weekends and Holidays Please call [facility] Cardiac Inter[facility] Care Unit (CIC) Charge Nurse *Special attention to sternal dressing Mandatory frequency Assess and evaluation, 4 days in a row The next week 3X week 2 times a week for 4 weeks 1 time a week for 5 weeks Initial visit Review Open Heart Surgery Discharge Instructions (Sternal precautions, Activity, Elastic hose, Incision care, Driving, Incentive spirometry, Smoking, Work and other) Need Betadine to paint incision Medication reconciliation Importance of follow up care/ check on appointments Make calendar record temperature daily Incentive Spirometry, demonstration Visit 1- Begin discharge instruction for patient family and/ or caregiver using teach back method- Signs and symptoms of infection Disease characteristics Medicines and side effects Foods and nutrition/ appetite Infection control/ hand washing/ hygiene Visit 2- Continue teaching Discharge instructions- include additional information on smoking cessation , sternal dressing (sternal vac) Visit 3- Continue teaching- Cough and deep breathing, incision monitoring. Visit 4- Continue teaching- Discuss limitations Discuss how they are feeling Discuss progress toward goals Remaining visits- continue teaching and monitoring I have seen patient Akil Asif on 08/13/16. My clinical findings support the need for the requested home health care services because: Deconditioned w/ increased weakness I certify that my clinical findings support that this patient is homebound because: Post-op weakness (wound care ) Kori Gonsalez Aug 13, 2016 15:13
[2016-08-13 16:00] VITALS: BP 124/70; PULSE 87; RESP 17; TEMP 97.7; O2SAT 97
[2016-08-13 20:00] VITALS: BP 119/73; PULSE 92; RESP 20; TEMP 98.4; O2SAT 98
[2016-08-13] MEDS: PANTOPRAZOLE SOD 40 MG DELAYED RELEASE TAB PO SCH (20:58)
[2016-08-14] VITALS: BP 115/73; PULSE 89; RESP 20; TEMP 99.1; O2SAT 98
[2016-08-14] MEDS: METHOCARBAMOL 500 MG TAB PO SCH (04:54)
[2016-08-14] MEDS: oxyCODONE/ACETAMINOPHEN 5 MG/325 MG TAB PO PRN ×2 (07:45→11:20)
[2016-08-14] MEDS: DOCUSATE SODIUM 50 MG/SENNA 8.6 MG TAB PO SCH (07:45)
[2016-08-14] MEDS: LACTULOSE SYRUP 20 GM/30 ML CUP PO SCH (07:51)
[2016-08-14] MEDS: BACITRACIN TOP OINT 15 GM TUBE TOP SCH (07:51)
[2016-08-14 08:00] VITALS: BP 133/78; PULSE 87; RESP 18; TEMP 98.5; O2SAT 95
[2016-08-14] MEDS ORDERED: MILKSUS PO (08:00)
[2016-08-14] MEDS ORDERED: SENN1TAB PO (08:00)
[2016-08-14] MEDS ORDERED: IMIT25TA PO (10:44)
[2016-08-14] MEDS: SUMAtriptan SUCCINATE 25 MG TAB PO PRN (10:49)
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
== END 2016-08-14 11:40 | disposition home health service (06) | DRG 163 ==
LOC: NEPI 22:57 → NEDA 23:22 → EDBD 23:22 → N03B 08-04 00:23 → N03A 08-04 01:03 → N07A 08-05 14:22
PROVIDERS: ADMIT Surgery; ATTEND Surgery
PROC: 0BC Respiratory System, Extirpation (ICD-10-PCS; 2016-08-04)
PROC: 02QQ0ZZ Repair Right Pulmonary Artery, Open Approach (ICD-10-PCS; 2016-08-04)
PROC: 3E0T3CZ (ICD-10-PCS; 2016-08-04)
PROC: 0W9930Z Drainage of Right Pleural Cavity with Drainage Device, Percutaneous Approach (ICD-10-PCS; 2016-08-04)
PROC: 30253N1 (ICD-10-PCS; 2016-08-04)
PROC: 30233K1 Transfusion of Nonautologous Frozen Plasma into Peripheral Vein, Percutaneous Approach (ICD-10-PCS; 2016-08-04)
PROC: 30233R1 Transfusion of Nonautologous Platelets into Peripheral Vein, Percutaneous Approach (ICD-10-PCS; 2016-08-04)
PROC: 02HV33Z Insertion of Infusion Device into Superior Vena Cava, Percutaneous Approach (ICD-10-PCS; 2016-08-04)
PROC: 03HY32Z Insertion of Monitoring Device into Upper Artery, Percutaneous Approach (ICD-10-PCS; 2016-08-04)
PROC: 0BQ Respiratory System, Repair (ICD-10-PCS; principal; 2016-08-04 04:38)
DX: S27.331A Laceration of lung, unilateral, initial encounter (principal); R57.1 Hypovolemic shock; S25.4 Injury of pulmonary blood vessels; S12.600A Unspecified displaced fracture of seventh cervical vertebra, initial encounter for closed fracture; S22.019A Unspecified fracture of first thoracic vertebra, initial encounter for closed fracture; S32.019A Unspecified fracture of first lumbar vertebra, initial encounter for closed fracture; D62 Acute posthemorrhagic anemia; S32.029A Unspecified fracture of second lumbar vertebra, initial encounter for closed fracture; S22.41XA Multiple fractures of ribs, right side, initial encounter for closed fracture; S32.039A Unspecified fracture of third lumbar vertebra, initial encounter for closed fracture; D68.9 Coagulation defect, unspecified; S22.069A Unspecified fracture of T7-T8 vertebra, initial encounter for closed fracture; S27.2XXA Traumatic hemopneumothorax, initial encounter; S27.321A Contusion of lung, unilateral, initial encounter; V68.5XXA Driver of heavy transport vehicle injured in noncollision transport accident in traffic accident, initial encounter; Y92.411 Interstate highway as the place of occurrence of the external cause; Z86.73 Personal history of transient ischemic attack (TIA), and cerebral infarction without residual deficits
CPT/HCPCS: 32551; 36430; 36556; 70450; 71010; 71260; 72125; 72128; 72131; 72170; 74177; 80048; 80053; 80320; 82435; 82565; 82805; 82947; 83735; 84100; 84132; 84155; 84295; 84520; 85014; 85018; 85025; 85027; 85379; 85384; 85576; 85610; 85730; 86850; 86900; 86901; 86920; 86927; 86965; 87641; 93005; 94002; 94150; 94640; 94664; 94667; 94668; 96374; 96375; 99291; C9290; C9399; G0390; J0131; J0171; J0461; J0690; J1644; J1650; J1720; J1885; J2250; J2270; J2370; J2405; J3010; J7030; J7120; J7613; L0150; L0172; P9016; P9017; P9035; P9045; Q9967